=== PATIENT | female | born 1955 | race Caucasian/White ===

== ENCOUNTER 2016-09-25 13:07 | Emergency (ER) | payer OTHER ==
[~2016-09-25] VITALS: Ht 165.1 cm; Wt 60.0 kg
[2016-09-25 13:11] VITALS: BP 183/90; PULSE 72; RESP 16; TEMP 98.6; O2SAT 95
--- NOTE | 2016-09-25 13:27 | PD ---
HPI Chief Complaint: Chest Pain Time Seen by Provider: 13:27 Travel History International Travel<30 days: No Contact w/Intl Traveler<30days: No Traveled to known affect area: No History of Present Illness HPI 61-year-old female with a history of HTN, HLD, CAD, chronic pain, anxiety presents to the emergency department for evaluation of chest pain and shortness of breath. The patient is here on vacation from [place] with her family. She states that she's had some recent family issues and has been undergoing a lot of stress. States that today after breakfast she started experiencing some pounding in her chest, felt as though her heart was beating very hard and fast. States that she then became short of breath. States that this initial episode resolved after her family comforted her and helped her calm down. States that it then began again while she was at [facility]. States that her heart began pounding, she became short of breath, became lightheaded and started feeling tingling in her lips and her left arm. Per EMS report when they arrived the patient was hyperventilating, vitals are stable, administered no medications. The patient's symptoms have currently resolved. She denies any fever, chills, nausea, vomiting, abdominal pain, weakness. The patient admits that she has not taken any of her blood pressure or cholesterol medications in about 3-6 months because she has not followed up with her doctor. She has however been taking her Percocet, tramadol and tizanidine as prescribed, she took all of these this morning. States that her last heart catheterization was 2 years ago, has never had any stents placed. Unsure of last stress test. Denies any other complaints. [facility] Past Medical History Narrative Medical Hypertension Hyperlipidemia Chronic pain Anxiety ?: Not Social History Tobacco Use: Yes Allergies-Medications (Allergen,Severity, Reaction): Coded Allergies: No Known Allergies (Unverified , 09/25/16) Review of Systems Except as stated in HPI: all other systems reviewed are Neg Physical Exam Narrative GENERAL: Well-nourished and well-developed pleasant female patient in no acute distress who is nontoxic appearing. SKIN: Warm and dry. HEAD: Normocephalic and atraumatic. EYES: No injection, drainage, or hyphema noted. PERRLA. EOMI. ENT: No nasal drainage noted. Oropharynx is clear. NECK: Supple and the trachea is midline. CARDIOVASCULAR: Regular rate and rhythm. RESPIRATORY: Breath sounds are equal bilaterally with no accessory muscle use, wheezing, rhonchi, or crackles. GASTROINTESTINAL: Abdomen is soft, non-tender, and nondistended. MUSCULOSKELETAL: No obvious deformities, swelling, cyanosis, or ecchymosis is present throughout the upper and lower extremities. Patient has full range of motion without any signs of neurovascular compromise. NEUROLOGICAL: Awake, alert, and oriented. Normal speech and gait. Cranial nerves are grossly intact. Data Data Last Documented VS Vital Signs Date Time Temp Pulse Resp B/P Pulse Ox O2 Delivery O2 Flow Rate FiO2 09/25/16 14:10 97 Room Air 09/25/16 14:10 178/78 181/72 09/25/16 14:09 70 16 09/25/16 13:11 98.6 Orders Electrocardiogram (09/25/16 13:24) Ckmb (Isoenzyme) Profile (09/25/16 13:24) Complete Blood Count With Diff (09/25/16 13:24) Comprehensive Metabolic Panel (09/25/16 13:24) Magnesium (Mg) (09/25/16 13:24) Prothrombin Time / Inr (Pt) (09/25/16 13:24) Act Partial Throm Time (Ptt) (09/25/16 13:24) Troponin I (09/25/16 13:24) Chest, Single Ap (09/25/16 13:24) Ecg Monitoring (09/25/16 13:24) Bilateral Bp Monitoring (09/25/16 13:24) Iv Access Insert/Monitor (09/25/16 13:24) Oximetry (09/25/16 13:24) Aspirin Chew (Aspirin Chew) (09/25/16 13:30) Sodium Chloride 0.9% Flush (Ns Flush) (09/25/16 13:30) Alcohol (Ethanol) (09/25/16 13:24) Drug Screen, Random Urine (09/25/16 13:24) CKMB (09/25/16 13:30) CKMB% (09/25/16 13:30) Labs Laboratory Tests Test 09/25/16 13:30 White Blood Count 9.3 TH/MM3 Red Blood Count 4.04 MIL/MM3 Hemoglobin 12.3 GM/DL Hematocrit 35.0 % Mean Corpuscular Volume 86.7 FL Mean Corpuscular Hemoglobin 30.3 PG Mean Corpuscular Hemoglobin 35.0 % Concent Red Cell Distribution Width 16.3 % Platelet Count 251 TH/MM3 Mean Platelet Volume 8.6 FL Neutrophils (%) (Auto) 73.2 % Lymphocytes (%) (Auto) 18.1 % Monocytes (%) (Auto) 6.7 % Eosinophils (%) (Auto) 1.2 % Basophils (%) (Auto) 0.8 % Neutrophils # (Auto) 6.8 TH/MM3 Lymphocytes # (Auto) 1.7 TH/MM3 Monocytes # (Auto) 0.6 TH/MM3 Eosinophils # (Auto) 0.1 TH/MM3 Basophils # (Auto) 0.1 TH/MM3 CBC Comment DIFF FINAL Differential Comment Prothrombin Time 10.7 SEC Prothromb Time International 1.0 RATIO Ratio Activated Partial 26.4 SEC Thromboplast Time Sodium Level 140 MEQ/L Potassium Level 4.0 MEQ/L Chloride Level 106 MEQ/L Carbon Dioxide Level 27.7 MEQ/L Anion Gap 6 MEQ/L Blood Urea Nitrogen 13 MG/DL Creatinine 1.01 MG/DL Estimat Glomerular Filtration 56 ML/MIN Rate Random Glucose 93 MG/DL Calcium Level 9.0 MG/DL Magnesium Level 2.3 MG/DL Total Bilirubin 0.2 MG/DL Aspartate Amino Transf 29 U/L (AST/SGOT) Alanine Aminotransferase 26 U/L (ALT/SGPT) Alkaline Phosphatase 71 U/L Total Creatine Kinase 168 U/L Creatine Kinase MB 4.9 NG/ML Troponin I LESS THAN 0.02 NG/ML Total Protein 7.1 GM/DL Albumin 3.8 GM/DL Ethyl Alcohol Level LESS THAN 3 MG/DL [facility] Medical Decision Making Medical Screen Exam Complete: Yes Emergency Medical Condition: Yes Differential Diagnosis Anxiety versus panic attack versus ACS versus pleurisy versus chest wall pain Narrative Course 61-year-old female presents to the emergency department by EMS for evaluation of episode of racing heart, chest pain, shortness of breath and hyperventilation. Patient is afebrile. She is slightly hypertensive with a blood pressure 183/90. Otherwise vital signs within normal limits. Physical examination is unremarkable. Patient states her symptoms have resolved. IV access is obtained, labs were drawn and sent. Patient is placed on cardiac telemetry and pulse oximetry monitoring. EKG shows sinus rhythm with no acute ST elevations or depressions. CBC is unremarkable. CMP shows mild renal insufficiency with a creatinine 1.01, GFR 56. No prior for comparison. CK-MB is 4.9. Troponin is less than 0.02. Coags are unremarkable. EtOH is negative. Patient has remained stable while here in the emergency department. She's had no further episode of chest pain. She's been complaining of pain in her neck and back which is chronic. She is requesting to be given pain medication for her chronic pain. I discussed all findings with the patient. I recommended she stay in chest pain center for repeat cardiac enzymes, EKGs and possible stress testing. The patient does not wish to stay for further evaluation. I discussed with patient and family that while her initial labs and EKG are within normal limits that she will need further testing to rule out an GA or cardiac etiology of her symptoms. Patient verbalized understanding and still does not want to stay in chest pain center and therefore will be discharged home to follow-up with her PCP in [place]. I did instruct her to return for any return or worsening of symptoms such as chest pain, shortness of breath, lightheadedness, syncope, dyspnea. Diagnosis Primary Impression: Chest pain Qualified Code: R07.9 - Chest pain, unspecified type Additional Impression: Panic attack Referrals: Primary Care Physician 1 week Patient Instructions: General Instructions Additional Instructions: You had chest pain today. We recommended you stay in our Chest Pain Center for repeat cardiac enzymes, EKGs and possible stress testing. You elected to leave instead of stay for further testing. You may return at any time for return of symptoms or worsening of symptoms. Follow-up with your Primary Care Physician within the next week. Med/Other Pt SpecificInfo: No Change to Meds Disposition: 01 DISCHARGE HOME Condition: Stable Amanda Potts Sep 25, 2016 13:27
[2016-09-25] MEDS ORDERED: SODIUM CHLORIDE 0.9% FLUSH 10 ML FLUSH IVF PRN (13:30)
[2016-09-25] MEDS ORDERED: ASPIRIN 81 MG CHEW TAB PO ONE (13:30)
[2016-09-25 13:41] LABS: AUTOMATED NEUTROPHIL # 6.8 TH/MM3 (1.8-7.7); BASOPHIL # 0.1 TH/MM3 (0-0.2); BASOPHIL % 0.8 % (0.0-2.0); EOSINOPHIL # 0.1 TH/MM3 (0-0.4); EOSINOPHIL % 1.2 % (0.0-4.0); HEMO FLAGS DIFF FINAL; LYMPH % 18.1 % (9.0-44.0); LYMPHOCYTE # 1.7 TH/MM3 (1.0-4.8); MEAN CELL VOLUME 86.7 FL (80.0-100.0); MEAN CORPUSCULAR HEMOGLOBIN 30.3 PG (27.0-34.0); MONO % 6.7 % (0.0-8.0); NEUT % 73.2 % (16.0-70.0); PLATELET COUNT 251 TH/MM3 (150-450); RED BLOOD COUNT 4.04 MIL/MM3 (4.00-5.30); RED CELL DISTRIBUTION WIDTH 16.3 % (11.6-17.2); WHITE BLOOD COUNT 9.3 TH/MM3 (4.0-11.0)
[2016-09-25 13:50] LABS: APTT (PATIENT) 26.4 SEC (24.3-30.1); PROTHROMBIN TIME - PATIENT 10.7 SEC (9.8-11.6)
[2016-09-25 13:56] LABS: ALT (GPT) 26 U/L (10-53); ANION GAP 6 MEQ/L (5-15); AST (GOT) 29 U/L (15-37); BICARBONATE 27.7 MEQ/L (21.0-32.0); BLOOD UREA NITROGEN 13 MG/DL (7-18); CHLORIDE 106 MEQ/L (98-107); GLOMERULAR FILTRATION RATE 56 ML/MIN (>89); MAGNESIUM 2.3 MG/DL (1.5-2.5); SODIUM (NA) 140 MEQ/L (136-145)
[2016-09-25 13:59] LABS: ALKALINE PHOSPHATASE 71 U/L (45-117); CREATINE KINASE 168 U/L (26-192); TOTAL BILIRUBIN ADULT 0.2 MG/DL (0.2-1.0)
--- NOTE | 2016-09-25 14:03 | RADRPT ---
EXAM DATE/TIME: 09/25/2016 13:28 [facility] COMPARISON: No previous studies available for comparison. INDICATIONS : Short of breath, chest pain and anxiety today, smoker MEDICAL HISTORY : anxiety, heart attack SURGICAL HISTORY : spinal stimulator ENCOUNTER: Initial ACUITY: 1 day PAIN SCORE: 8/10 LOCATION: Bilateral chest FINDINGS: Single AP view of the chest. Neural simulator leads in the midthoracic region. The lungs are clear. C ardiomediastinal silhouette within normal limits. No evidence of pleural effusion or pneumothorax. CONCLUSION: No acute cardiopulmonary disease identified. Tyree Wan MD on September 25, 2016 at 14:01 Board Certified Radiologist. This report was verified electronically.
[2016-09-25 14:09] VITALS: BP 180/87; PULSE 70; RESP 16; O2SAT 100
[2016-09-25 14:10] VITALS: BP_SYST 178; BP_SYST 181; BP_DIAS 72; BP_DIAS 78; O2SAT 97
[2016-09-25 14:12] LABS: CKMB 4.9 NG/ML (0.5-3.6)
[2016-09-25 15:20] VITALS: BP 170/72
[2016-09-25 15:31] LABS: AMPHETAMINE, URINE NEG (NEG); BARBITURATES, URINE NEG (NEG); COCAINE, URINE NEG (NEG)
--- NOTE | 2016-09-26 14:53 | EKG ---
Date Performed: 09/25/2016 Time Performed: 13:48:34 PTAGE: 61 years EKG: Sinus rhythm Poor initial anterior forces, probably normal variant ABNORMAL ECG NO PREVIOUS TRACING DOCTOR: Jayce Conrad Interpretating Date/Time 09/26/2016 14:52:19
== END 2016-09-25 15:33 | disposition home or self-care (01) ==
LOC: NEPE 13:07
DX: R07.9 Chest pain, unspecified (principal); R06.02 Shortness of breath; F41.0 Panic disorder [episodic paroxysmal anxiety]; I10 Essential (primary) hypertension; E78.5 Hyperlipidemia, unspecified; Z72.0 Tobacco use
CPT/HCPCS: 71010; 80053; 80307; 82550; 82552; 83735; 84484; 85025; 85610; 85730; 93005